=== PATIENT | male | born 1970 | race African-American/Black ===

== ENCOUNTER 2023-03-04 02:10 | Emergency (ER) | payer MEDICAID ==
[~2023-03-04] VITALS: Ht 185.4 cm; Wt 115.7 kg
[2023-03-04] MEDS ORDERED: TDAP [DIPH/PERTUSSIS/TET] 0.5 ML VIAL IM ONE ×2 (02:30→02:35)
[2023-03-04] MEDS ORDERED: HYDROCODONE/APAP 5/325MG TABLET PO ONE (02:30)
[2023-03-04] MEDS ORDERED: HYDROCODONE/APAP 5/325MG TABLET ONE (02:34)
[2023-03-04 04:14] VITALS: BP 132/80; TEMP 98; O2SAT 98
== END 2023-03-04 04:15 | disposition home or self-care (01) ==
LOC: ER 02:16
DX: S61.412A Laceration without foreign body of left hand, initial encounter (principal); Y04.2XXA Assault by strike against or bumped into by another person, initial encounter; Y93.89 Activity, other specified; Y92.89 Other specified places as the place of occurrence of the external cause; Y99.8 Other external cause status
CPT/HCPCS: 73130-TC; 90715

== ENCOUNTER 2024-06-17 21:22 | Emergency (ER) | payer OTHER ==
[~2024-06-17] VITALS: Ht 185.4 cm; Wt 115.7 kg
[2024-06-17] MEDS ORDERED: diphenhydrAMINE HCL 50 MG/ML VIAL ONE (22:27)
[2024-06-17] MEDS ORDERED: METOCLOPRAMIDE HCL 10 MG/2 ML VIAL ONE (22:28)
[2024-06-17] MEDS ORDERED: ACETAMINOPHEN ES 500 MG TABLET ONE (22:28)
[2024-06-17] MEDS: IV NS 0.9% 500 ML BAG IV ONE (22:37)
[2024-06-17] MEDS: ACETAMINOPHEN ES 500 MG TABLET PO ONE (22:37)
[2024-06-17] MEDS: diphenhydrAMINE HCL 50 MG/ML VIAL IV ONE (22:37)
[2024-06-17] MEDS: METOCLOPRAMIDE HCL 10 MG/2 ML VIAL IV ONE (22:37)
[2024-06-18 00:12] VITALS: BP 141/78; TEMP 98.5; O2SAT 98
== END 2024-06-18 00:20 | disposition home or self-care (01) ==
LOC: ER 21:23
DX: S09.8XXA Other specified injuries of head, initial encounter (principal); F17.200 Nicotine dependence, unspecified, uncomplicated; I10 Essential (primary) hypertension; M54.2 Cervicalgia; R11.0 Nausea; Z96.641 Presence of right artificial hip joint; V43.52XA Car driver injured in collision with other type car in traffic accident, initial encounter; Y93.89 Activity, other specified; Y92.488 Other paved roadways as the place of occurrence of the external cause; Y99.8 Other external cause status
CPT/HCPCS: 99285; 96374; 70450; 96361; 96375; J1200; J2765; J7040